=== PATIENT | female | born 1960 | race Caucasian/White ===

== ENCOUNTER → 2021-01-08 13:27 | Outpatient (CLI) | payer OTHER, SELFPAY ==
--- NOTE | ~2021-01-08 | CT_ITS ---
EXAMINATION: CT lung screening DATE: 01/08/2021 13:47 INDICATION: Personal history of tobacco dependence, current smoker with 40 pack year history TECHNIQUE: Computed tomography (CT) of the chest was performed without intravenous contrast. The dose -length product (DLP) was 38.92 mGy-cm. Automated exposure control and iterative reconstruction techn ique were employed. COMPARISON: None FINDINGS: There is an 8 mm nodule of the right middle lobe on image 64. There is a 2 mm nodule of the left lowe r lobe. The lungs are free of acute opacities. There is no pleural effusion or pneumothorax. No patho logically enlarged thoracic lymph nodes are identified. The heart size is normal. There is moderate t horacic spondylosis. IMPRESSION: 1. Lung-RADS category 4A: Findings for which additional diagnostic testing and/or tissue sampling is recommended. Recommend three month low-dose CT follow-up and/or PET/CT. Reviewed, dictated and finalized at location A. IMPRESSION: 1. Lung-RADS category 4A: Findings for which additional diagnostic testing and/ or tissue sampling is recommended. Recommend three month low-dose CT follow-up and/or PET/CT.
== END ==
PROVIDERS: PCP Internal Medicine; Visit Provider Internal Medicine
DX: Z12.2 Encounter for screening for malignant neoplasm of respiratory organs (principal); Z87.891 Personal history of nicotine dependence
CPT/HCPCS: 71271

== ENCOUNTER → 2021-02-07 10:36 | Outpatient (CLI) | payer OTHER, SELFPAY ==
--- NOTE | ~2021-02-07 | MM_ITS ---
EXAMINATION: MM screening darshana BI w nataliya HISTORY: Screening mammogram TECHNIQUE: Craniocaudal and mediolateral oblique 3-D tomosynthesis images were obtained and synthetic 2-D images were generated. CAD analysis was submitted and interpreted. COMPARISON: No prior mammogram is available for comparison at this institution. BREAST PARENCHYMAL COMPOSITION: There are scattered areas of fibroglandular density. FINDINGS: RIGHT BREAST: There is no evidence of suspicious mass, calcification, or architectural distortion to suggest malignancy. LEFT BREAST: There are questionable small masses with calcifications in the middle third of the upper outer quadrant of the breast. IMPRESSION: 1. Possible left breast masses which may represent the patient's baseline however no comparison is cu rrently available. 2. Comparison with prior mammograms is necessary. BI-RADS Category 0: Incomplete: Needs comparison with prior mammograms. Reviewed, dictated and finalized at location A. IMPRESSION: 1. Possible left breast masses which may represent the patient's baseline howev er no comparison is currently available. 2. Comparison with prior mammograms is necessary. BI-RADS Category 0: Incomplete: Needs comparison with prior mammograms.
== END ==
PROVIDERS: PCP Internal Medicine; Visit Provider Internal Medicine
DX: Z12.31 Encounter for screening mammogram for malignant neoplasm of breast (principal); R92.8 Other abnormal and inconclusive findings on diagnostic imaging of breast
CPT/HCPCS: 77063; 77067

== ENCOUNTER → 2021-04-17 09:30 | Outpatient (CLI) | payer OTHER, SELFPAY ==
--- NOTE | ~2021-04-17 | MMUS_ITS ---
EXAMINATION: MM diagnostic darshana LT w nataliya, US breast LT limited HISTORY: Possible left breast masses on screening mammogram TECHNIQUE: Additional 3-D tomosynthesis images of the left breast were performed and synthetic 2-D im ages were generated. CAD analysis was submitted and interpreted. High resolution limited left breast ultrasound was performed. COMPARISON: 01/28/2021, 08/11/2017, 12/17/2012 BREAST PARENCHYMAL COMPOSITION: There are scattered areas of fibroglandular density. FINDINGS: MAMMOGRAPHIC FINDINGS: There is a 5 mm oval, obscured, equal density mass anterior/middle third of the outer breast at the 2 :00 location 3 cm from the nipple. Suspicious architectural distortion is identified. ULTRASOUND: There is a 6 mm x 4 mm oval, circumscribed, parallel, hypoechoic mass at the 12:00 location 2 cm from the nipple with no posterior features or internal vascularity. A 5 mm x 3 mm mass with similar sonog raphic features is present at the 3:00 location 5 cm from the nipple IMPRESSION: 1. Probably benign left breast masses. 2. Recommend 6 month follow-up left diagnostic mammogram and ultrasound. BI-RADS category 3, probably benign findings. Reviewed, dictated and finalized at location A. IMPRESSION: 1. Probably benign left breast masses. 2. Recommend 6 month follow-up left diagnostic mammogram and ultrasound. BI-RADS category 3, probably benign findings.
== END ==
PROVIDERS: PCP Internal Medicine; Visit Provider Internal Medicine
DX: R92.8 Other abnormal and inconclusive findings on diagnostic imaging of breast (principal); N63.25 Unspecified lump in the left breast, overlapping quadrants
CPT/HCPCS: 76642; 77061; 77065; G0279

== ENCOUNTER → 2021-05-14 09:46 | Outpatient (CLI) | payer OTHER, SELFPAY ==
--- NOTE | ~2021-05-14 | CT_ITS ---
EXAMINATION:CT diagnostic chest wo con DATE: 05/14/2021 10:02 INDICATION: Solitary pulmonary nodule. TECHNIQUE: Computed tomography (CT) of the chest was performed without intravenous contrast. Automate d exposure control and iterative reconstruction technique were employed. The dose-length product (DLP ) was 37.78 mGy-cm. COMPARISON: Chest CT 01/08/21 FINDINGS: There is mild scarring at the lung apices. There is mild emphysema. There are 4 mm, 3 mm, a nd 2 mm nodules in right lower lobe, stable from 01/08/21. There is an 8.6 mm nodule in right middle l obe that previously measured 7.8 mm. No pleural effusion. The heart size is normal. No pericardial ef fusion. There is severe thoracic spondylosis. IMPRESSION: 1. Pulmonary nodules measuring up to 8.6 mm, likely benign. Noncontrast, low-dose chest CT is recomme nded in 12 months. Reviewed, dictated and finalized at location A. IMPRESSION: 1. Pulmonary nodules measuring up to 8.6 mm, likely benign. Noncontrast, low-do se chest CT is recommended in 12 months.
== END ==
PROVIDERS: PCP Internal Medicine
DX: R91.1 Solitary pulmonary nodule (principal)
CPT/HCPCS: 71250